=== PATIENT | male | born 1965 | race African-American/Black ===

== ENCOUNTER 2019-12-07 23:26 | Emergency (ER) | payer OTHER, SELFPAY ==
[2019-12-08] MEDS ORDERED: Ondansetron ODT 4 MG TAB ONE (00:24)
[2019-12-09 12:30] LABS: SARS-CoV-2 MS2 Positive; SARS-CoV-2 N Gene Negative; SARS-CoV-2 S Gene Negative; SARS-CoV-2 by NAA Not Detected (NotDetected); SARS-CoV-2 orf1ab Negative
== END 2019-12-08 01:20 | disposition home or self-care (01) ==
LOC: BURERS 23:26
DX: B34.9 Viral infection, unspecified (principal); R11.2 Nausea with vomiting, unspecified; Z20.828 Contact with and (suspected) exposure to other viral communicable diseases; I10 Essential (primary) hypertension; F17.200 Nicotine dependence, unspecified, uncomplicated; Z79.899 Other long term (current) drug therapy
CPT/HCPCS: 87635; 87804; 99284; Q0162; U0003